=== PATIENT | male | born 1950 | race Caucasian/White ===

== ENCOUNTER → 2020-11-14 13:28 | Outpatient (CLI) | payer MEDICARE, OTHER, SELFPAY ==
--- NOTE | 2020-11-14 | DI.ECHO.S_ITS ---
[facility] +---------+ : : [address] : [address] : : : : [id number] : : : : Phone: [phone] +---------+ Echocardiogram Report + + :Name: CIARA KAUR Study Date: 11/14/2020 Height: 66 in : :[facility] ReadingLocation: Weight: 179 lb : : Gender: Male BSA: 1.9 m2 : :: 1950 Age: 70 yrs BP: 122/67 mmHg: :Reason For Study: CHRONIC ISCHEMIC HEART DISEASE : :Ordering Physician: ANDREA, : :SAEED Performed By: Hollie Knapp : :Referring: MANUELA GRIJALVA : + + Interpretation Summary Limited echo study. No color Doppler was performed. The left ventricle is normal in size. The ejection fraction is estimated to be 55-60%. No significant change in LVEF from the previous study. The right ventricle is grossly normal size. The right ventricular systolic function is normal. The IVC is of normal diameter and collapses greater than 50% with a sniff. This suggests a low right atrial pressure of 3 mm Hg. Procedure: The study quality was technically adequate. Comparison is made with the echocardiogram of 01/28/2020. The patient was in sinus rhythm with heart rates between 57-60 bpm during the exam. Left Ventricle: The left ventricle is normal in size. There is mild concentric left ventricular hypertrophy. Proximal septal thickening is noted. There is no echo evidence for significant left ventricular outflow tract obstruction. There is no thrombus. The ejection fraction is estimated to be 55-60%. There are no focal wall motion abnormalities. Right Ventricle: The right ventricle is grossly normal size. The right ventricular systolic function is normal. Atria: Both atria are normal in size. Great Vessels: The IVC is of normal diameter and collapses greater than 50% with a sniff. This suggests a low right atrial pressure of 3 mm Hg. Pericardium/ Pleura There is no pericardial effusion. There is no pleural effusion. MMode/2D Measurements & Calculations LVIDd: 5.1 cm LA A2 area: 20.9 cm2 LVIDs: 3.5 cm LA A4 area: 17.1 cm2 FS: 32.0 % LA length (vol): 5.1 cm IVSd: 1.2 cm LA vol: 59.7 ml LVPWd: 1.1 cm LA vol index: 31.3 ml/m2 LV avila. diameter/BSA (cm/m^2): 2.7 LV sys. diameter/BSA (cm/m^2): 1.8 RA long axis: 6.0 cm RA area: 14.4 cm2 RA vol: 29.4 ml RA : 15.4 ml/m2 IVC diam: 1.2 cm Reading Physician:11:46 AM
== END ==
PROVIDERS: PCP Family Medicine; Referring Provider Internal Medicine Cardiovascular Disease; Visit Provider Internal Medicine Cardiovascular Disease
DX: I25.9 Chronic ischemic heart disease, unspecified (principal); Z95.1 Presence of aortocoronary bypass graft
CPT/HCPCS: 93307